=== PATIENT | male | born 2000 | race Caucasian/White ===

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

== ENCOUNTER → 2019-08-07 | Outpatient (CLI) | payer OTHER | LOC: COL.LAB 12:19 | DX: R19.7 Diarrhea, unspecified (principal); R10.9 Unspecified abdominal pain ==